=== PATIENT | female | born 1970 | race Native Hawaiian/Other Pacific Islander ===

== ENCOUNTER 2018-04-11 12:08 | Outpatient (CLI) | payer BC ==
[~2018-04-11 12:08] MED LIST: ALPR0.5T24 PO; AMBIEN5 MG PO; PANT40TA PO; STRATTERA80 MG PO
== END 2018-04-11 22:43 | disposition home or self-care (01) ==
LOC: RAD 12:08
DX: R10.84 Generalized abdominal pain (principal); K59.09 Other constipation; R19.4 Change in bowel habit
CPT/HCPCS: 74022

== ENCOUNTER 2018-07-09 12:09 | Outpatient (CLI) | payer BC | END 2018-07-09 19:22 | disposition home or self-care (01) | LOC: RAD 12:09 | DX: M54.5 Low back pain (principal) ==

== ENCOUNTER 2019-08-05 11:36 | Emergency (ER) | payer BC ==
[~2019-08-05] VITALS: Ht 157.5 cm; Wt 79.4 kg
[2019-08-05 11:50] VITALS: TEMP 97.9
[2019-08-05 12:20] LABS: PLATELET COUNT 245 K/uL (152-353)
[2019-08-05 12:25] LABS: POTASSIUM 4.7 mmol/L (3.6-5.2)
[2019-08-05 13:55] VITALS: BP 135/66
== END 2019-08-05 13:55 | disposition home or self-care (01) ==
LOC: ED 11:36
PROVIDERS: Emergency Medicine
DX: K57.92 Diverticulitis of intestine, part unspecified, without perforation or abscess without bleeding (principal)
CPT/HCPCS: 80053; 81000; 85027; 96372; 99283; J1885

== ENCOUNTER 2021-12-06 15:40 | Outpatient (CLI) | payer BC | END 2021-12-06 20:16 | disposition home or self-care (01) | LOC: RAD 15:40 | PROVIDERS: ATTEND Physician Assistant | DX: M54.59 Other low back pain (principal) ==

== ENCOUNTER 2022-01-27 14:53 | Outpatient (CLI) | payer BC | END 2022-01-27 19:36 | disposition home or self-care (01) | LOC: CT 14:53 | PROVIDERS: ATTEND Physician Assistant | DX: R10.2 Pelvic and perineal pain (principal) ==